=== PATIENT | female | born 2000 | race Caucasian/White ===

== ENCOUNTER 2019-03-04 19:46 | Emergency (ER) | payer BC ==
[2019-03-04 19:55] VITALS: TEMP 96.7
[2019-03-04 20:03] LABS: BASO % 0.5 % (0.0-2.0); EOS % 0.3 % (0-4.0); GRAN # 2.9 (1.4-6.5); GRAN % 43.6 % (42.2-75.2); HEMATOCRIT 39.9 % (35.0-45.0); HEMOGLOBIN 13.5 g/dl (12.0-15.0); LYMPH # 3.2 (1.2-3.4); LYMPH % 47.9 % (20.0-51.0); MEAN CELL VOLUME 87 fl (80.0-95.0); MEAN CORPUSCULAR HEMOGLOBIN 30 pg (26.0-32.0); MEAN CORPUSCULAR HGB CONC 34 g/dl (33.0-37.0); MEAN PLATELET VOLUME 10.1 fl (7.4-10.4); MONO # 0.5 (0.1-0.6); MONO % 7.4 % (1.7-9.3); PLATELET COUNT 339 K/mm3 (130-400); RED BLOOD COUNT 4.58 M/mm3 (4.10-5.30); REDCELL DISTRIBUTION WIDTH-CV 11.8 % (11.5-14.5)
[2019-03-04 20:14] LABS: ALANINE AMINOTRANSFERASE 14 U/L (9-52); ALBUMIN 4.4 gm/dL (3.5-5.0); ALCOHOL(ethanol),MEDICAL 288 mg/dL; ALKALINE PHOSPHATASE 95 U/L (50-136); ANION GAP 13 mmol/L (7-16); AST,SGOT 31 U/L (15-37); BILIRUBIN,TOTAL 0.2 mg/dL (0.0-1.0); BLOOD UREA NITROGEN 8 mg/dL (7-17); CALCIUM 8.7 mg/dL (8.4-10.2); CARBON DIOXIDE 23 mmol/L (22-30); CHLORIDE 109 mmol/L (98-107); CREATININE, serum 0.63 (0.52-1.25); GLUCOSE 100 mg/dL (74-106); POTASSIUM 3.5 mmol/L (3.4-5.0); SODIUM 145 mmol/L (137-145); TOTAL PROTEIN 7.8 gm/dL (6.4-8.2)
[2019-03-04 20:19] LABS: ACETAMINOPHEN < 10 ug/mL (10-30); SALICYLATE < 1.0 mg/dL
[2019-03-04 20:54] LABS: COLLECTION METHOD CATHETER
[2019-03-04 21:04] LABS: PH 6 (5-8); SQUAMOUS EPITHELIAL None Seen /hpf; URINE APPEARANCE Clear; URINE BACTERIA None Seen /hpf; URINE BILIRUBIN Negative (NEGATIVE); URINE BLOOD Negative (NEGATIVE); URINE COLOR Straw; URINE GLUCOSE Negative (NEGATIVE); URINE KETONE Negative (NEGATIVE); URINE LEUKOCYTE ESTERASE Negative (NEGATIVE); URINE NITRATE Negative (NEGATIVE); URINE PROTEIN(semi-quant) Negative (NEGATIVE); URINE RBC 0-2 /hpf; URINE UROBILINOGEN Negative (NEGATIVE)
[2019-03-04 21:09] LABS: TRICYCLIC ANTIDEPRESS URINE NEGATIVE
[2019-03-05 03:45] VITALS: BP 94/50; PULSE 72
[2019-03-05] MEDS ORDERED: ZOFRAN ODT8 MG PO (04:03)
== END 2019-03-05 04:28 | disposition home or self-care (01) ==
LOC: COL.ER 19:46
PROVIDERS: Emergency Medicine
DX: F10.129 Alcohol abuse with intoxication, unspecified (principal); R11.2 Nausea with vomiting, unspecified
CPT/HCPCS: J1200; J1630; J2060; J2405; J7030